=== PATIENT | female | born 1985 | race American Indian/Alaskan Native ===

== ENCOUNTER 2021-09-17 01:27 | Emergency (ER) | payer OTHER | END 2021-09-17 01:40 | disposition left against medical advice (07) | LOC: ED 01:27 | DX: Z04.1 Encounter for examination and observation following transport accident (principal); Z53.21 Procedure and treatment not carried out due to patient leaving prior to being seen by health care provider; V87.7XXA Person injured in collision between other specified motor vehicles (traffic), initial encounter; Y93.89 Activity, other specified; Y92.488 Other paved roadways as the place of occurrence of the external cause; Y99.8 Other external cause status ==